=== PATIENT | female | born 2000 | race Native Hawaiian/Other Pacific Islander ===

== ENCOUNTER 2022-05-30 15:32 | Outpatient (CLI) | payer BC | END 2022-05-30 20:39 | disposition home or self-care (01) | LOC: CT 15:32 | PROVIDERS: ATTEND Internal Medicine | DX: R19.7 Diarrhea, unspecified (principal); R10.13 Epigastric pain; R11.0 Nausea; R10.11 Right upper quadrant pain ==

== ENCOUNTER 2022-05-31 11:35 | Outpatient (CLI) | payer BC | END 2022-05-31 19:33 | disposition home or self-care (01) | LOC: CT 11:35 | PROVIDERS: ATTEND Internal Medicine | DX: R19.7 Diarrhea, unspecified (principal); R10.13 Epigastric pain; R11.0 Nausea; R10.11 Right upper quadrant pain | CPT/HCPCS: Q9963 ==